=== PATIENT | female | born 2000 | race Caucasian/White ===

== ENCOUNTER 2019-12-02 10:14 | Emergency (ER) | payer BC, OTHER ==
[~2019-12-02] VITALS: Ht 162.6 cm; Wt 63.6 kg
[2019-12-02 12:38] LABS: APPEARANCE,URINE CLOUDY (CLEAR); BILIRUBIN,URINE NEGATIVE (NEGATIVE); GLUCOSE, URINE (UA) NEGATIVE (NEGATIVE); KETONES,URINE NEGATIVE (NEGATIVE); LEUKOCYTE ESTERASE ,URINE MODERATE (NEGATIVE); NITRATE,URINE NEGATIVE (NEGATIVE); OCCULT BLOOD,URINE NEGATIVE (NEGATIVE); PROTEIN,URINE NEGATIVE (NEGATIVE); UROBILINOGEN,URINE 0.2 mg/dL (<=1.0)
[2019-12-02 12:46] LABS: RBC,URINE 0-2 /HPF (0-2)
[2019-12-02 12:47] LABS: BACTERIA,URINE Moderate /HPF (None Seen); SQUAMOUS EPITHELIAL CELL,UR Many /LPF (None Seen)
[2019-12-02 13:40] VITALS: BP 111/71
== END 2019-12-02 13:43 | disposition home or self-care (01) ==
LOC: EMS 10:16
DX: B37.3 Candidiasis of vulva and vagina (principal); R59.1 Generalized enlarged lymph nodes; N39.0 Urinary tract infection, site not specified
CPT/HCPCS: 87086